=== PATIENT | female | born 1970 | race Asian ===

== ENCOUNTER 2022-07-06 06:42 | Day surgery (SDC) | payer BC ==
[~2022-07-06] VITALS: Ht 147.3 cm; Wt 54.4 kg
[2022-07-06] MEDS ORDERED: CEFAZOLIN SOD 1 GM in D5W 50 ML IV ONE (07:00)
[2022-07-06 07:10] LABS: HCG,QUAL RESULT NEGATIVE (NEGATIVE)
[2022-07-06] MEDS ORDERED: NS IRRIG SOLN 1000 ML IR ONE (11:11)
[2022-07-06] MEDS ORDERED: METOCLOPRAMIDE HCL 10 MG/2 ML VIAL ONE (11:11)
[2022-07-06] MEDS ORDERED: GLYCOPYRROLATE 0.2 MG/ML VIAL ONE (11:11)
[2022-07-06] MEDS ORDERED: BUPIVACAINE /EPINEPHRINE/PF 0.25% 30 ML VIAL ONE (11:11)
[2022-07-06] MEDS ORDERED: SEVOFLURANE 15 MIN GAS INH ONE (11:11)
[2022-07-06] MEDS ORDERED: fentaNYL CITRATE/PF 100 MCG/2 ML AMP ONE (11:11)
[2022-07-06] MEDS ORDERED: PROPOFOL 200MG/ 20ML VIAL (DIPRIVAN) IV ONE (11:11)
[2022-07-06] MEDS ORDERED: LIDOCAINE 2%, 20 ML MDV ONE (11:11)
[2022-07-06] MEDS ORDERED: ePHEDrine sulfate 50 MG/ML VIAL ONE (11:11)
[2022-07-06] MEDS ORDERED: ONDANSETRON HCL 4 MG/2 ML VIAL ONE (11:11)
[2022-07-06] MEDS ORDERED: LR 1,000 ML IV.SOLN IV ONE (11:11)
[2022-07-06] MEDS ORDERED: MIDAZOLAM HCL 2 MG/2 ML VIAL (VERSED) ONE (11:11)
[2022-07-06] MEDS ORDERED: ONDANSETRON HCL 4 MG/2 ML VIAL IVP PRN (11:45)
[2022-07-06] MEDS ORDERED: HYDROmorphone 1 MG/ML INJ. CARTRIDGE IVP PRN (11:45)
[2022-07-06] MEDS ORDERED: HYDROmorphone 2 MG/ML VIAL IVP PRN (11:45)
[2022-07-06] MEDS ORDERED: LR 1,000 ML IV SCH (11:45)
[2022-07-06] MEDS ORDERED: HYDROcodone/ACETAMIN 5-325 MG TAB (NORCO/ VICODIN) PO PRN ×2 (12:30)
[2022-07-06] MEDS ORDERED: D5/0.45 NS 1,000 ML IV SCH (12:30)
[2022-07-06] MEDS ORDERED: LABETALOL HCL 20 MG/4 ML CARTRIDGE IVP ONE ×2 (12:59→13:00)
[2022-07-06 16:06] VITALS: BP_SYST 126
== END 2022-07-07 14:51 | disposition home or self-care (01) ==
LOC: SDS 06:42 → SMU 06:44 → SDS 07-07 14:51
PROVIDERS: ATTEND Colon & Rectal Surgery
DX: N63.20 Unspecified lump in the left breast, unspecified quadrant (principal); Z88.6 Allergy status to analgesic agent; I10 Essential (primary) hypertension; Z79.899 Other long term (current) drug therapy; Z20.822 Contact with and (suspected) exposure to COVID-19
CPT/HCPCS: 87081; 36415 ×2; 19301; 38525; 38792; 84703; 77065; 19285; 88305; 88307; 88329; 88342; 87426; U0003; A9541; J3490 ×2; J0690; J2001; J2765; J3465; J2405; J2704; J3010; J7060; J7120; 78195